=== PATIENT | female | born 1950 | race Caucasian/White ===

== ENCOUNTER → 2017-04-26 | Outpatient (CLI) | payer MEDICARE ==
--- NOTE | 2017-04-26 10:52 | WWHP ---
[facility] - HISTORY AND PHYSICAL CHIEF COMPLAINT: The patient is here for her routine gynecologic exam and mammogram. HPI: This is a 67-year-old, G3, P3-0-0-1 with an LMP of 2002. The patient is here for her routine gynecologic exam and is without gynecologic complaints. She denies any postmenopausal bleeding. It has been about 4 years since her last pelvic exam. PAST MEDICAL HISTORY: Depression and osteopenia. MEDICATIONS: 1. Zoloft 50 mg every other day and 25 mg every other day. 2. Multivitamin 1 daily. 3. Aspirin 81 mg daily. 4. Fish oil supplement 1200 mg b.i.d. 5. Red yeast rice supplement 1200 mg b.i.d. 6. Calcium with vitamin D 500 mg b.i.d. 7. Ibuprofen p.r.n. ALLERGIES: No known drug allergies. PAST SURGICAL HISTORY: Breast biopsy and tubal ligation in the past, colonoscopy in 2014 and this was her second one. PAST OB HISTORY: Three vaginal deliveries. 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 She states she does not usually need any medication for this. She has no other history of STDs. SOCIAL HISTORY: She denies tobacco, alcohol, and drug use. She is a since 2016 and is not seeing anybody at this time. FAMILY HISTORY: Both parents had lung cancer. Maternal grandmother had colon cancer. REVIEW OF SYSTEMS: Weight has been stable. She denies respiratory, cardiac or GI problems. She denies maltreatment or falling. : She has slight stress urinary incontinence with sneezing and coughing. PHYSICAL EXAM: Blood pressure 151/70, height 4 feet 11 inches, weight 151 pounds, temperature 97.1, pulse 70. This is a well-developed, well-nourished, white female, who is alert and oriented x3, in no acute distress. HEENT is within normal limits. Neck is supple without mass or thyromegaly Chest and lungs clear to auscultation. HEART: Regular rate and rhythm. Breasts are without mass or discharge. Axillary exam is negative for adenopathy. Back negative for CVA tenderness. ABDOMEN: Soft, nontender, without palpable masses. PELVIC EXAM: External genitalia reveals moderate atrophy without lesions. Vagina reveals moderate atrophy without lesions. The cervix appears somewhat stenotic secondary to atrophy. There is no evidence of prolapse. The uterus is mid position, nongravid size and nontender. There are no palpable adnexal masses or tenderness. Rectovaginal exam is negative for mass or tenderness and is negative for occult blood. EXTREMITIES: Nontender. IMPRESSION: 1. 67-year-old menopausal female with normal gynecologic exam. 2. History of osteopenia. 3. Elevated blood pressure. PLAN: 1. Pap smear was performed. 2. Self breast examination was discussed. 3. Mammogram will be done today. 4. Osteoporosis prevention was discussed. 5. We have discussed her elevated blood pressure. I have recommended that she take her blood pressure on a regular basis at home since she does have a cuff for this. She will follow up with her primary care clinic for blood pressure problems. 6. She did receive a flu shot this past fall. 7. She will return in 1 year. MMODL / IJN: [id number] /
--- NOTE | 2017-04-27 08:55 | MM ---
Reason for exam: screening (asymptomatic). Last mammogram was performed 1 year and 1 month ago. History: Patient is postmenopausal. Benign excisional biopsy of the left breast, August 26, 1998. Physical Findings: A clinical breast exam by your physician is recommended on an annual basis and results should be correlated with mammographic findings. MG 3D Screening Mammo W/Cad Bilateral CC and MLO view(s) were taken. Prior study comparison: March 23, 2016, bilateral MG 3d screening mammo w/cad. January 23, 2015, bilateral MG screening mammo w CAD. February 27, 2013, bilateral digital screening mammo w/CAD. The breast tissue is heterogeneously dense. This may lower the sensitivity of mammography. Finding: There are occasional typically benign round calcifications in both breasts. There is no discrete abnormality. ASSESSMENT: Benign, BI-RAD 2 RECOMMENDATION: Routine screening mammogram of both breasts in 1 year.
== END | disposition home or self-care (01) ==
LOC: WWCWWP 07:52
PROVIDERS: ATTEND Obstetrics & Gynecology
DX: Z12.31 Encounter for screening mammogram for malignant neoplasm of breast (principal)
CPT/HCPCS: 77063; 77067

== ENCOUNTER → 2018-07-19 | Outpatient (CLI) | payer MEDICARE ==
--- NOTE | 2018-07-19 11:00 | US ---
EXAMINATION TYPE: US thyroid st tissue head/neck DATE OF EXAM: 07/19/2018 COMPARISON: NONE CLINICAL HISTORY: 68-year-old female [id number] ENLARGED LYMPH NODES. Palpable lump left neck TECHNIQUE: Multiple sonographic images of the thyroid gland are obtained. FINDINGS: GLAND SIZE: Right Lobe: 4.0 x 1.3 x 1.3 cm Overall Parenchyma: homogenous Left Lobe: 2.9 x 1.5 x 1.1 cm Overall Parenchyma: homogeneous Isthmus Thickness: 0.5 cm NODULES RIGHT: # of nodules measured on right: 0 LEFT: # of nodules measured on left: 0 ISTHMUS: # of nodules measured in the isthmus: 0 FLOUR INSPECTOR NOTES: At the area of the patient's palpable lump in the left neck, there is a probable l ymph node visualized measuring 0.9 x 0.7 x 0.9 cm. While this is not abnormally enlarged by size crit eria, it is prominently rounded and hypoechoic. IMPRESSION: 1. Possible reactive or postinflammatory 9 mm lymph node at the patient's left neck palpable site. Th is can be monitored clinically. If any suspicious clinical features or enlargement is noted, contrast -enhanced CT soft tissue neck performed. 2. Otherwise, the thyroid gland appears unremarkable.
== END ==
LOC: RADUSWWP 09:20
PROVIDERS: ATTEND Family Medicine
DX: R59.9 Enlarged lymph nodes, unspecified (principal)
CPT/HCPCS: 76536

== ENCOUNTER → 2020-04-29 | Outpatient (CLI) | payer MEDICARE ==
--- NOTE | 2020-04-29 17:03 | BD ---
EXAMINATION TYPE: Axial Bone Density DATE OF EXAM: 04/29/2020 COMPARISON: 01.23.2015 CLINICAL HISTORY: 70 YR OLD FEMALE....ICD-10 CODE: M85.89 Height: 58.8 Weight: 144 FRAX RISK QUESTIONS: NOTHING TO NOTE HERE RISK FACTORS HISTORY OF: Postmenopausal woman: YES AT AGE 52 YRS OLD Lost more than 2 inches in height since high school: YES Hyperparathyroidism: NO Adrenal Insufficiency: NO MEDICATIONS: Additional Medications: VIT D AND CALCIUM Additional History: NO ADDITIONAL INFORMATION TO ADD HERE EXAM MEASUREMENTS: Bone mineral densitometry was performed using the [employer] System. Bone mineral density as measured about the Lumbar spine is: ----- L1-L4(G/cm2): 1.156 T Score Values are as follows: ----- L1: -1.7 ----- L2: -0.3 ----- L3: 1.6 ----- L4: -0.7 ----- L1-L4: -0.2 Bone mineral density has: Decreased -0.8% since study of: 01.23.2015 Bone mineral density about the R hip (g/cm2): 0.929 Bone mineral density about the L hip (g/cm2): 0.924 T Score values are as follows: -----R Neck: -1.2 -----L Neck: -1.0 -----R Total: -0.6 -----L Total: -0.7 Bone mineral density has: Decreased -3.8% since study of: 01.23.2015 FRAX%s: THERE IS A 9.2% CHANCE FOR A MAJOR OSTEOPOROTIC FX AND A 1.1% FOR HIP....PROBABILITY FOR FX IN 10 YRS TIME IMPRESSION: Osteopenia (T Score between -2.5 and -1). There is slightly increased risk of fracture and the patient may be considered for treatment. Re-Screen 2-5 years. NOTE: T-SCORE=SD OF THE YOUNG ADULT MEAN.
--- NOTE | 2020-05-01 10:03 | MM ---
Reason for exam: screening (asymptomatic). Last mammogram was performed 3 years ago. History: Patient is postmenopausal. Benign excisional biopsy of the left breast, August 26, 1998. Physical Findings: A clinical breast exam by your physician is recommended on an annual basis and results should be correlated with mammographic findings. MG 3D Screening Mammo W/Cad Bilateral CC and MLO view(s) were taken. Prior study comparison: April 26, 2017, bilateral MG 3d screening mammo w/cad. April 05, 2016, right breast MG 3d work up w/cad RT. The breast tissue is heterogeneously dense. This may lower the sensitivity of mammography. Finding: There are coarse heterogeneous, grouped/clustered calcifications in the upper outer quadrant, middle position of the right breast 9cm from the nipple. New finding since April 26, 2017 and April 05, 2016. ASSESSMENT: Incomplete: need additional imaging evaluation, BI-RAD 0 RECOMMENDATION: Special view mammogram of the right breast. [facility] will attempt to contact patient to return for supplemental views.
== END | disposition home or self-care (01) ==
LOC: RADMAMWWP 08:21
PROVIDERS: ATTEND Family Medicine
DX: Z12.31 Encounter for screening mammogram for malignant neoplasm of breast (principal); M85.88 Other specified disorders of bone density and structure, other site
CPT/HCPCS: 77063; 77067; 77080

== ENCOUNTER → 2020-05-12 | Outpatient (CLI) | payer MEDICARE ==
--- NOTE | 2020-05-13 09:16 | MM ---
Reason for exam: additional evaluation requested from abnormal screening. Last mammogram was performed less than 1 month ago. History: Patient is postmenopausal. Benign excisional biopsy of the left breast, August 26, 1998. Physical Findings: Nurse did not find any significant physical abnormalities on exam. MG 3D Work Up W/Cad RT CC with magnification, LM with magnification, and LM view(s) were taken of the right breast. Prior study comparison: April 29, 2020, bilateral MG 3d screening mammo w/cad. April 26, 2017, bilateral MG 3d screening mammo w/cad. There are scattered fibroglandular densities. Heterogeneous grouped lower outer quadrant calcifications have increased, biopsy recommended. These results were verbally communicated with the patient and result sheet given to the patient on 05/12/20. ASSESSMENT: Suspicious, BI-RAD 4 RECOMMENDATION: Stereotactic core biopsy of the right breast. Called Dr. Rogers's office with mammographic findings and has scheduled an appointment for the patient for 06/11/20 at 4:[address] Ramos. Biopsy scheduled for 05/26/20 at 10:00. PRELIMINARY REPORT CALLED AND FAXED TO DR. RAMOS ON 05/13/20.
== END | disposition home or self-care (01) ==
LOC: RADMAMWWP 14:21
PROVIDERS: ATTEND Family Medicine
DX: R92.8 Other abnormal and inconclusive findings on diagnostic imaging of breast (principal)
CPT/HCPCS: 77065; G0279; 77061

== ENCOUNTER → 2020-05-26 | Day surgery (SDC) | payer MEDICARE ==
[2020-05-26 09:17] VITALS: RESP 16; TEMP 98.3
[2020-05-26 10:53] VITALS: BP 147/72; PULSE 74
--- NOTE | 2020-05-28 09:19 | MM ---
Stereotactic Mammotome core biopsy right breast. HISTORY: Right breast calcifications The calcifications in question within the right breast were targeted by the undersigned. Procedure was performed by the undersigned. Informed consent was obtained and all of the patients questions were answered. The standard sterile technique was utilized and appropriate local anesthesia was obtained with 1% lidocaine. Mammotome probe was advanced and multiple core samples were obtained and sent to pathology for interpretation. Microclip marker was deployed at the site of biopsy. Post procedural mammogram demonstrates appropriate deployment of radiopaque clip marker. The patient tolerated the procedure well and left the department in stable condition. Pathology results are pending. IMPRESSION: Successful stereotactic core biopsy right breast with pathology results pending. 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 Negative for in situ or invasive malignancy. Recommendation Follow up mammogram of the right breast in 6 months. SANDRO
== END ==
LOC: RADMAMWWP 08:53
PROVIDERS: ATTEND Surgery
DX: R92.0 Mammographic microcalcification found on diagnostic imaging of breast (principal); R92.8 Other abnormal and inconclusive findings on diagnostic imaging of breast; N60.22 Fibroadenosis of left breast; N60.31 Fibrosclerosis of right breast; N60.81 Other benign mammary dysplasias of right breast; N60.21 Fibroadenosis of right breast
CPT/HCPCS: 88305; 88342; 88341; 19081; A4648; J2001

== ENCOUNTER → 2020-12-16 | Outpatient (CLI) | payer MEDICARE ==
--- NOTE | 2020-12-16 11:40 | MM ---
Reason for exam: follow-up at short interval from prior study. Last mammogram was performed 7 months ago. History: Patient is postmenopausal. Benign MG stereo VAD BX RT of the right breast, May 26, 2020. Benign excisional biopsy of the left breast, August 26, 1998. Physical Findings: Nurse did not find any significant physical abnormalities on exam. MG 3D Diag Mammo W/Cad RT CC and MLO view(s) were taken of the right breast. Prior study comparison: May 12, 2020, right breast MG 3d work up w/cad RT. April 29, 2020, bilateral MG 3d screening mammo w/cad. There are scattered fibroglandular densities. Benign appearing calcifications in the right breast. Previous mammotome biopsy in the right breast. These results were verbally communicated with the patient and result sheet given to the patient on 12/16/20. ASSESSMENT: Benign, BI-RAD 2 RECOMMENDATION: Return to routine screening mammogram schedule for both breasts. Back on schedule for April 2021.
== END | disposition home or self-care (01) ==
LOC: RADMAMWWP 10:55
PROVIDERS: ATTEND Surgery
DX: R92.8 Other abnormal and inconclusive findings on diagnostic imaging of breast (principal)
CPT/HCPCS: 77065; G0279; 77061

== ENCOUNTER → 2021-05-06 | Outpatient (CLI) | payer MEDICARE ==
--- NOTE | 2021-05-07 15:04 | MM ---
Reason for exam: screening (asymptomatic). Last mammogram was performed 5 months ago. History: Patient is postmenopausal. Benign MG stereo VAD BX RT of the right breast, May 26, 2020. Benign excisional biopsy of the left breast, August 26, 1998. Physical Findings: A clinical breast exam by your physician is recommended on an annual basis and results should be correlated with mammographic findings. MG 3D Screening Mammo W/Cad Bilateral CC and MLO view(s) were taken. Prior study comparison: December 16, 2020, right breast MG 3d diag mammo w/cad RT. May 12, 2020, right breast MG 3d work up w/cad RT. There are scattered fibroglandular densities. There are benign appearing round dystrophic calcifications bilaterally. Previous mammotome biopsy in the right breast. Asymmetric breast tissue in the right breast, stable. There is no discrete abnormality. ASSESSMENT: Benign, BI-RAD 2 RECOMMENDATION: Routine screening mammogram of both breasts in 1 year.
== END | disposition home or self-care (01) ==
LOC: RADMAMWWP 08:11
PROVIDERS: ATTEND Family Medicine
DX: Z12.31 Encounter for screening mammogram for malignant neoplasm of breast (principal); Z78.0 Asymptomatic menopausal state
CPT/HCPCS: 77063; 77067

== ENCOUNTER → 2023-05-10 | Outpatient (CLI) | payer MEDICARE ==
--- NOTE | 2023-05-11 19:49 | MM ---
Reason for Exam: Screening (asymptomatic). Last mammogram was performed 2 year(s) and 0 month(s) ago. Patient History: Menarche at age 10. First Full-Term at age 17. Postmenopausal. 05/26/2020, Benign Core Biopsy on the right side. 08/26/1998, Benign Excisional Biopsy on the left side. Risk Values: Vesna 5 year model risk: 2.1%. NCI Lifetime model risk: 4.8%. Prior Study Comparison: 05/12/2020 Right Diagnostic Mammogram, [facility]. 12/16/2020 Right Diagnostic Mammogram, [facility]. 05/06/2021 Bilateral Screening Mammogram, [facility]. Tissue Density: There are scattered fibroglandular densities. Findings: Analyzed By CAD. Unchanged global asymmetry upper outer quadrant right breast. Microclip right breast from prior biopsy. Unchanged fat necrosis calcifications posteriorly on the left. There is no suspicious group of microcalcifications or new suspicious mass in either breast. Overall Assessment: Benign, BI-RAD 2 Management: Screening Mammogram of both breasts in 1 year. . Patient should continue monthly self-breast exams. A clinical breast exam by your physician is recommended on an annual basis. This exam should not preclude additional follow-up of suspicious palpable abnormalities. Note on Vesna scores and lifetime risk: 1. A Vesna score greater than 3% is considered moderate risk. If this is the case, consider specialist referral to assess eligibility for a risk reducing agent. 2. If overall lifetime risk for the development of breast cancer is 20% or higher, the patient may qualify for future screening with alternating mammogram and breast MRI. Electronically signed and approved by: Odilia Goode M.D. Radiologist
== END | disposition home or self-care (01) ==
LOC: RADMAMWWP 09:13
PROVIDERS: ATTEND Family Medicine
DX: Z12.31 Encounter for screening mammogram for malignant neoplasm of breast (principal); Z78.0 Asymptomatic menopausal state
CPT/HCPCS: 77063; 77067

== ENCOUNTER 2023-08-14 15:52 | Inpatient (IN) | payer MEDICARE ==
--- NOTE | 2023-08-14 16:49 | ED ---
Abdominal Pain HPI - General Chief Complaint: Abdominal Pain Stated Complaint: Abd pain Time Seen by Provider: 08/14/23 16:27 Source: patient, family Mode of arrival: ambulatory - History of Present Illness Initial Comments: Otherwise healthy 73-year-old female presenting to the ED with a chief complaint of abdominal pain. 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 Patient reports pain is a constant pressure in nature intermittently becomes worse. No provoking factors. No alleviating or aggravating factors. Patient reports the pain feels as if she needs to pass gas. For this she reports she took 2 Gas-X pills which did not relieve her pain. She also notes today when she was urinating, felt as if she had to strain a little more than usual to successfully urinate however denies pain with urination, frequency, urgency, blood in the urine. No changes in bowel habits. Denies nausea or vomiting. Denies fever or chills. No chest pains or shortness of breath. No other complaints at this time. Has a surgical history significant for remote tubal ligation. - Related Data Home Medications Medication Instructions Recorded Confirmed Calcium Carbonate [Calcium] 1 tab PO DAILY 05/14/20 05/26/20 Cholecalciferol [Vitamin D3 (10 1 tab PO DAILY 05/14/20 05/26/20 Mcg = 400 Iu)] Multivitamins, Thera [Multivitamin 1 tab PO DAILY 05/14/20 05/26/20 (formulary)] [place]-3 Fatty Acids/Fish Oil [Fish 1 each PO DAILY 05/14/20 05/26/20 Oil 1,000 mg Softgel] Red Yeast Rice 1 tab PO DAILY 05/14/20 05/26/20 Elderberry Fruit and Flower [Black 1 each PO DAILY 05/26/20 05/26/20 Elderberry 575 mg Cap] Allergies Allergy/AdvReac Type Severity Reaction Status Date / Time No Known Allergies Allergy Verified 08/14/23 16:20 Review of Systems ROS Statement: Those systems with pertinent positive or pertinent negative responses have been documented in the HPI. ROS Other: All systems not noted in ROS Statement are negative. Past Medical History Past Medical History: No Reported History History of Any Multi-Drug Resistant Organisms: None Reported Past Surgical History: Breast Surgery Additional Past Surgical History / Comment(s): Benign excisional biopsy left breast 1998 Past Anesthesia/Blood Transfusion Reactions: No Reported Reaction, Motion Sickness Past Psychological History: No Psychological Hx Reported Smoking Status: Never smoker Past Alcohol Use History: None Reported Past Drug Use History: None Reported General Exam General appearance: alert, in no apparent distress Eye exam: Present: normal appearance Neck exam: Present: normal inspection Respiratory exam: Present: normal lung sounds bilaterally Cardiovascular Exam: Present: regular rate GI/Abdominal exam: Present: soft (No significant tenderness to palpation. No rebound guarding or rigidity. Bowel sounds active. No CVA tenderness percussion bilaterally.) Neurological exam: Present: alert, oriented X3 Skin exam: Present: warm, dry Course Vital Signs 08/14/23 08/14/23 16:15 17:33 Temperature 97.6 F Pulse Rate 72 71 Respiratory 18 18 Rate Blood Pressure 174/80 189/89 O2 Sat by Pulse 100 95 Oximetry Medical Decision Making - Medical Decision Making Was pt. sent in by a medical professional or institution (, PA, GRAIN SHOVELER, urgent care, hospital, or fpc...) When possible be specific @ -No Did you speak to anyone other than the patient for history (EMS, parent, family, police, friend...)? What history was obtained from this source @ -No Did you review nursing and triage notes (agree or disagree)? Why? @ -I reviewed and agree with nursing and triage notes Were old charts reviewed (outside hosp., previous admission, EMS record, old EKG, old radiological studies, urgent care reports/EKG's, fpc records)? Report findings @ -No old charts were reviewed Differential Diagnosis (chest pain, altered mental status, abdominal pain women, abdominal pain men, vaginal bleeding, weakness, fever, dyspnea, syncope, headache, dizziness, GI bleed, back pain, seizure, CVA, palpatations, mental health, musculoskeletal)? @ -Differential Abdominal Pain Women: Appendicitis, Cholecystitis, diverticulosis, ischemic bowel, pancreatitis, hepatitis, UTI, gastroenteritis, AAA, incarcerated hernia, bowel obstruction, constipation, inflammatory bowel, hepatitis, peptic ulcer disease, splenic infarction, perforated viscus, vulvitis, ovarian torsion, PID, kidney stone, placenta abruption, this is not meant to be an all-inclusive list EKG interpreted by me (3pts min.). @ -None X-rays interpreted by me (1pt min.). @ -None done CT interpreted by me (1pt min.). @ -CT interpreted me which reveals acute uncomplicated appendicitis. U/S interpreted by me (1pt. min.). @ -None done What testing was considered but not performed or refused? (CT, X-rays, U/S, labs)? Why? @ -None What meds were considered but not given or refused? Why? @ -Patient was offered analgesics however at this time declined Did you discuss the management of the patient with other professionals (professionals i.e. , PA, GRAIN SHOVELER, lab, RT, psych nurse, foster care social worker, industrial gas fitter helper, teacher, ship's officer, high risk case manager)? Give summary @ -My attending physician, Dr. Huynh, will discuss the case with Dr. Moon Was smoking cessation discussed for >3mins.? @ -No Was critical care preformed (if so, how long)? @ -No Were there social determinants of health that impacted care today? How? (Homelessness, low income, unemployed, alcoholism, drug addiction, transportation, low edu. Level, literacy, decrease access to med. care, fci, rehab)? @ -No Was there de-escalation of care discussed even if they declined (Discuss DNR or withdrawal of care, Hospice)? DNR status @ -No What co-morbidities impacted this encounter? (DM, HTN, Smoking, COPD, CAD, Cancer, CVA, ARF, Chemo, Hep., AIDS, mental health diagnosis, sleep apnea, morbid obesity)? @ -None Was patient admitted / discharged? Hospital course, mention meds given and route, prescriptions, significant lab abnormalities, going to OR and other pertinent info. @ -Admission Otherwise healthy 73-year-old female presenting to the ED complaints of lower abdominal pressure and difficulties urinating today. Laboratory studies reviewed. CBC does show an elevated white blood cell count at 13.5. Neutrophils elevated at 9.2. Chemistry panel largely unremarkable. Urine does show some evidence of infection with small leukocyte Estrace, 8 white blood cells, occasional bacteria, no contamination. Serology panel unremarkable. CT reveals evidence of uncomplicated acute appendicitis with a dilated tubular structure in the right lower quadrant appearing to represent an inflamed appendix measuring up to 12 mm in diameter with surrounding fat stranding there is no extraluminal gas or focal fluid collection. Patient started on IV antibiotics. Blood cultures obtained. At this time, patient is hemodynamically stable afebrile. Undiagnosed new problem with uncertain prognosis? @ -No Drug Therapy requiring intensive monitoring for toxicity (Heparin, Nitro, Insulin, Cardizem)? @ -No Were any procedures done? @ -No Diagnosis/symptom? @ -Acute appendicitis, urinary tract infection Acute, or Chronic, or Acute on Chronic? @ -Acute Uncomplicated (without systemic symptoms) or Complicated (systemic symptoms)? @ -Complicated Side effects of treatment? @ -No Exacerbation, Progression, or Severe Exacerbation? @ -No Poses a threat to life or bodily function? How? (Chest pain, [place], [place], pneumonia, PE, COPD, DKA, ARF, appy, cholecystitis, CVA, Diverticulitis, Homicidal, Gomez icidal, threat to staff... and all critical care pts) @ -Possibly however at this time unlikely - Lab Data Result diagrams: 08/14/23 16:44 08/14/23 16:44 Lab Results 08/14/23 08/14/23 08/14/23 Range/Units 16:40 16:44 16:44 WBC 13.5 H (3.8-10.6) k/uL RBC 4.23 (3.80-5.40) m/uL Hgb 14.0 (11.4-16.0) gm/dL Hct 42.9 (34.0-46.0) % MCV 101.6 H (80.0-100.0) fL MCH 33.1 (25.0-35.0) pg MCHC 32.6 (31.0-37.0) g/dL RDW 12.6 (11.5-15.5) % Plt Count 347 (150-450) k/uL MPV 9.7 Neutrophils % 68 % Lymphocytes % 25 % Monocytes % 5 % Eosinophils % 1 % Basophils % 0 % Neutrophils # 9.2 H (1.3-7.7) k/uL Lymphocytes # 3.4 (1.0-4.8) k/uL Monocytes # 0.6 (0-1.0) k/uL Eosinophils # 0.2 (0-0.7) k/uL Basophils # 0.1 (0-0.2) k/uL Sodium 137 (137-145) mmol/L Potassium 4.5 (3.5-5.1) mmol/L Chloride 101 (98-107) mmol/L Carbon Dioxide 31 H (22-30) mmol/L Anion Gap 5 mmol/L BUN 24 H (7-17) mg/dL Creatinine 0.70 (0.52-1.04) mg/dL Est GFR (CKD-EPI)AfAm >90 (>60 ml/min/1.73 sqM) Est GFR (CKD-EPI)NonAf 86 (>60 ml/min/1.73 sqM) Glucose 100 H (74-99) mg/dL Calcium 9.7 (8.4-10.2) mg/dL Total Bilirubin 0.4 (0.2-1.3) mg/dL AST 26 (14-36) U/L ALT 22 (4-34) U/L Alkaline Phosphatase 61 (38-126) U/L Total Protein 7.0 (6.3-8.2) g/dL Albumin 3.9 (3.5-5.0) g/dL Amylase 101 (30-110) U/L Lipase 174 (23-300) U/L Urine Color Colorless Urine Appearance Clear (Clear) Urine pH 6.5 (5.0-8.0) Ur Specific [place] 1.017 (1.001-1.035) Urine Protein Negative (Negative) Urine Glucose (UA) Negative (Negative) Urine Ketones Negative (Negative) Urine Blood Negative (Negative) Urine Nitrite Negative (Negative) Urine Bilirubin Negative (Negative) Urine Urobilinogen <2.0 (<2.0) mg/dL Ur Leukocyte Esterase Small H (Negative) Urine RBC <1 (0-5) /hpf Urine WBC 8 H (0-5) /hpf Urine Bacteria Occasional H (None) /hpf Urine Mucus Rare H (None) /hpf Influenza Type A (PCR) (Not Detectd) Influenza Type B (PCR) (Not Detectd) RSV (PCR) (Not Detectd) SARS-CoV-2 (PCR) (Not Detectd) 08/14/23 Range/Units 16:48 WBC (3.8-10.6) k/uL RBC (3.80-5.40) m/uL Hgb (11.4-16.0) gm/dL Hct (34.0-46.0) % MCV (80.0-100.0) fL MCH (25.0-35.0) pg MCHC (31.0-37.0) g/dL RDW (11.5-15.5) % Plt Count (150-450) k/uL MPV Neutrophils % % Lymphocytes % % Monocytes % % Eosinophils % % Basophils % % Neutrophils # (1.3-7.7) k/uL Lymphocytes # (1.0-4.8) k/uL Monocytes # (0-1.0) k/uL Eosinophils # (0-0.7) k/uL Basophils # (0-0.2) k/uL Sodium (137-145) mmol/L Potassium (3.5-5.1) mmol/L Chloride (98-107) mmol/L Carbon Dioxide (22-30) mmol/L Anion Gap mmol/L BUN (7-17) mg/dL Creatinine (0.52-1.04) mg/dL Est GFR (CKD-EPI)AfAm (>60 ml/min/1.73 sqM) Est GFR (CKD-EPI)NonAf (>60 ml/min/1.73 sqM) Glucose (74-99) mg/dL Calcium (8.4-10.2) mg/dL Total Bilirubin (0.2-1.3) mg/dL AST (14-36) U/L ALT (4-34) U/L Alkaline Phosphatase (38-126) U/L Total Protein (6.3-8.2) g/dL Albumin (3.5-5.0) g/dL Amylase (30-110) U/L Lipase (23-300) U/L Urine Color Urine Appearance (Clear) Urine pH (5.0-8.0) Ur Specific [place] (1.001-1.035) Urine Protein (Negative) Urine Glucose (UA) (Negative) Urine Ketones (Negative) Urine Blood (Negative) Urine Nitrite (Negative) Urine Bilirubin (Negative) Urine Urobilinogen (<2.0) mg/dL Ur Leukocyte Esterase (Negative) Urine RBC (0-5) /hpf Urine WBC (0-5) /hpf Urine Bacteria (None) /hpf Urine Mucus (None) /hpf Influenza Type A (PCR) Not Detected (Not Detectd) Influenza Type B (PCR) Not Detected (Not Detectd) RSV (PCR) Not Detected (Not Detectd) SARS-CoV-2 (PCR) Not Detected (Not Detectd) Disposition Clinical Impression: Acute appendicitis, Urinary tract infection Disposition: ADMITTED IP TO THIS HOSP Condition: Good Referrals: Shimon Rogers DO [Primary Care Provider] - 1-2 days Time of Disposition: 20:32
[2023-08-14 16:59] LABS: Basophils # (A) 0.1 k/uL (0-0.2); Basophils % (A) 0 %; Eosinophils # (A) 0.2 k/uL (0-0.7); Eosinophils % (A) 1 %; HCT 42.9 % (34.0-46.0); Lymphocytes # (A) 3.4 k/uL (1.0-4.8); Lymphocytes % (A) 25 %; MCH 33.1 pg (25.0-35.0); MCHC 32.6 g/dL (31.0-37.0); MCV 101.6 fL (80.0-100.0); Mean Platelet Volume 9.7; Monocytes # (A) 0.6 k/uL (0-1.0); Monocytes % (A) 5 %; Neutrophils # (A) 9.2 k/uL (1.3-7.7); Neutrophils % (A) 68 %; Platelet Count 347 k/uL (150-450); RBC 4.23 m/uL (3.80-5.40); RDW 12.6 % (11.5-15.5); WBC 13.5 k/uL (3.8-10.6)
[2023-08-14] MEDS: SODIUM CHLORIDE 0.9% 1,000 ML IV STA (17:00)
[2023-08-14 17:08] LABS: Appearance,Urine Clear (Clear); Bacteria,Urine Occasional /hpf; Bilirubin,Urine Negative (Negative); Blood,Urine Negative (Negative); Color,Urine Colorless; Glucose,Urine (UA) Negative (Negative); Ketones,Urine Negative (Negative); Leukocyte Esterase,Urine Small (Negative); Mucus,Urine Rare /hpf; Nitrite,Urine Negative (Negative); PH, Urine 6.5 (5.0-8.0); Protein,Urine Negative (Negative); RBC,Urine <1 /hpf (0-5); Specific Gravity,Urine 1.017 (1.001-1.035); Urobilinogen,Urine <2.0 mg/dL (<2.0); WBC,Urine 8 /hpf (0-5)
[2023-08-14 17:12] LABS: ALT 22 U/L (4-34); AST 26 U/L (14-36); African American GFR (CKD) >90 (>60 ml/min/1.73 sqM); Albumin 3.9 g/dL (3.5-5.0); Alkaline Phosphatase 61 U/L (38-126); Amylase 101 U/L (30-110); Anion Gap 5 mmol/L; Blood Urea Nitrogen 24 mg/dL (7-17); Calcium 9.7 mg/dL (8.4-10.2); Carbon Dioxide 31 mmol/L (22-30); Chloride 101 mmol/L (98-107); Glucose 100 mg/dL (74-99); Lipase 174 U/L (23-300); Non-African American GFR(CKD) 86 (>60 ml/min/1.73 sqM); Potassium 4.5 mmol/L (3.5-5.1); Sodium 137 mmol/L (137-145); Total Bilirubin 0.4 mg/dL (0.2-1.3)
--- NOTE | 2023-08-14 19:58 | CT ---
EXAMINATION TYPE: CT abdomen pelvis wo con CT DLP: 478.4 mGycm, Automated exposure control for dose reduction was used. DATE OF EXAM: 08/14/2023 5:09 PM COMPARISON: None. CLINICAL INDICATION:Female, 73 years old with history of suprapubic pain difficulty urinating r/o sto ne; suprapubic pain & difficulty urinating onset 2 pm today. r/o stone TECHNIQUE: Axial CT of the abdomen and pelvis. Sagittal and coronal reformats were created on a [employer] workstation. Contrast used: mL of , (none if empty) Oral contrast used: without Oral Contrast (none if empty) FINDINGS: LOWER CHEST: Lung bases are clear. Heart is mildly enlarged with moderate coronary arterial calcifica tions. Partial calcification aortic and mitral valves. No pericardial effusion. ABDOMEN LIVER: Unremarkable GALLBLADDER AND BILE DUCTS: Unremarkable gallbladder. No biliary ductal dilatation. PANCREAS: Unremarkable. SPLEEN: Unremarkable. ADRENAL GLANDS: Mildly thickened, may be seen with hyperplasia.. KIDNEYS AND URETERS: No evidence of renal calculi or contour deformity. Mildly prominent bilateral ex trarenal pelves. No hydroureteronephrosis. PELVIS BLADDER: Incompletely distended but grossly unremarkable. REPRODUCTIVE: Unremarkable. ABDOMEN & PELVIS STOMACH AND BOWEL: Stomach and small bowel are nondistended, no evidence of obstruction. Dilated tu bular structure in the right lower quadrant appears to represent an inflamed appendix, measuring up t o 12 mm diameter and there is surrounding fat stranding. No extraluminal gas or focal fluid collectio n. Mild stool throughout the colon. There are multiple diverticula throughout the colon without evid ence of diverticulitis. PERITONEUM/RETROPERITONEUM: No evidence of pneumoperitoneum or free fluid. VASCULATURE: Moderate atherosclerotic calcifications are present throughout the abdominal aorta and i ts branches. No evidence of aortic aneurysm. Iliofemoral arteries are tortuous. LYMPH NODES: No enlarged nodes by CT size criteria. SOFT TISSUE/ABDOMINAL WALL: Tiny fat-containing umbilical hernia. MUSCULOSKELETAL: No acute osseous abnormalities. Mild/moderate disc degeneration changes are present throughout the thoracolumbar spine. Mild pectus excavatum deformity. IMPRESSION: Acute uncomplicated appendicitis.
[2023-08-14] MEDS ORDERED: HYDROmorphone 0.5 MG/0.5 ML SYRINGE IVP PRN (20:44)
[2023-08-14] MEDS ORDERED: ACETAMINOPHEN TAB 325 MG TAB PO PRN (20:44)
[2023-08-14] MEDS ORDERED: ONDANSETRON 4 MG/2 ML VIAL IVP PRN (20:44)
[2023-08-14] MEDS ORDERED: HYDROmorphone 1 MG/ML 1 ML SYRINGE IVP PRN (20:44)
[2023-08-14] MEDS ORDERED: NALOXONE 0.4 MG/ML 1 ML VIAL IV PRN (20:44)
[2023-08-14] MEDS: SODIUM CHLORIDE 0.9% 1,000 ML IV SCH (20:55)
[2023-08-14] MEDS: hydrALAZINE HCL 20 MG/ML 1 ML VIAL IVP STA (21:04)
[2023-08-15 02:11] VITALS: RESP 16
--- NOTE | 2023-08-15 08:07 | P.PN ---
Progress Note - Text Progress Note Date: 08/15/23 The patient had been scheduled for laparoscopic appendectomy. The patient was evaluated. She states that her pain resolved spontaneously around 6 PM last night. Approximate 2 hours after she was in the emergency. Patient has no pain currently. She feels well. She denies any significant GI complaints. The patient may have had gastroenteritis. Patient will start on regular diet. We will cancel laparoscopic appendectomy.
[2023-08-15] MEDS: PIPERACILLIN-TAZOBACTAM 3.375 GM in SODIUM CHLORIDE 0.9% 100 ML IVPB SCH (08:32)
--- NOTE | 2023-08-15 10:27 | P.CONS ---
History of Present Illness - Reason for Consult Consult date: 08/15/23 - Chief Complaint Medical consult - History of Present Illness 73-year-old woman with medical history of depression, osteopenia presented for evaluation of abdominal pain. Patient says that yesterday she started to experience some lower quadrant abdominal pain with bloating. Initially, she thought this was gas and tried to take Gas-X a few times, however, her pain did not improve. She reports that she started to have chills associated with her pain. In retrospect, she notes that she has been having on and off chills for the last week or so. She also has felt more tired than usual and has had a loss of appetite in the last 24 hours. She denies any diarrhea. She feels her urine output is dropped today, but has not been drinking much water in the last 24 hours. She denies dysuria. She denies fevers. She denies chest pain, palpitations, syncope, numbness/weakness of extremities. In the emergency room, patient was afebrile, 164/78, heart rate 70, 97% on room air. CBC demonstrated leukocytosis to 13.5, mild elevation of MCV to 101.6. Basic metabolic panel showed CO2 of 31, BUN 24, otherwise unremarkable. Liver function tests are unremarkable. Amylase was 101, lipase was 174. Lactic acid was 0.9. UA showed small leukocyte esterase, 8 white blood cells, occasional bacteria. Influenza A, B, RSV, COVID were negative. Abdominal CT demonstrated evidence of mild uncomplicated appendicitis. Patient was admitted to the surgical service with medicine consultation. All Systems reviewed and pertinent positives and negatives noted in HPI, all other symptoms are negative Gen: in no apparent distress, resting comfortably in bed Eyes: PERRL, no scleral injection or icterus HENT: normocephalic, atraumatic, good hearing acuity, moist mucous membranes Neck: no tracheal deviation, full range of motion Resp: good air exchange, breathing comfortably with no accessory muscle use, no tactile fremitus, clear to auscultation bilaterally CVS: good distal perfusion x 4, no pitting edema, regular rate and rhythm without murmurs GI: soft, NTTP, ND, no hepatosplenomegaly : no suprapubic tenderness, no CVAT, kamara catheter not present MSK: no clubbing, no cyanosis, no noted contractures of extremities Skin: no noted rashes, petechiae; temperature of skin is appropriate Neuro: moving all extremities without signs of weakness, CN II-XII intact Psych: cooperative, euthymic mood, insight and judgment intact Labs and imaging as above Assessment/plan: Acute uncomplicated appendicitis -Primary team is following -Antibiotics can be transitioned to p.o. and patient is medically cleared for discharge -Pain control per primary team Depression Osteopenia -Home medications reviewed, no changes need to be made on discharge. Patient is full code Past Medical History Past Medical History: No Reported History History of Any Multi-Drug Resistant Organisms: None Reported Past Surgical History: Breast Surgery Additional Past Surgical History / Comment(s): Benign excisional biopsy left breast 1998 Past Anesthesia/Blood Transfusion Reactions: No Reported Reaction, Motion Sickness Past Psychological History: No Psychological Hx Reported Smoking Status: Never smoker Past Alcohol Use History: None Reported Past Drug Use History: None Reported Medications and Allergies Home Medications Medication Instructions Recorded Confirmed Type Calcium Carbonate [Calcium] 600 mg PO DAILY 05/14/20 08/15/23 History Cholecalciferol [Vitamin D3 (10 10 mcg PO DAILY 05/14/20 08/15/23 History Mcg = 400 Iu)] Multivitamins, Thera [Multivitamin 1 tab PO DAILY 05/14/20 08/15/23 History (formulary)] [place]-3 Fatty Acids/Fish Oil [Fish 1 cap PO DAILY 05/14/20 08/15/23 History Oil 1,000 mg Softgel] Red Yeast Rice 600 mg PO DAILY 05/14/20 08/15/23 History Elderberry Fruit and Flower [Black 1 cap PO DAILY 05/26/20 08/15/23 History Elderberry 575 mg Cap] predniSONE [Deltasone] See Taper PO DAILY 08/15/23 08/15/23 History Allergies Allergy/AdvReac Type Severity Reaction Status Date / Time No Known Allergies Allergy Verified 08/15/23 09:13 Physical Exam Osteopathic Statement: *. No significant issues noted on an osteopathic structural exam other than those noted in the History and Physical/Consult. Vitals: Vital Signs Temp Pulse Pulse Pulse Resp BP BP 08/15/23 08:00 70 16 08/15/23 07:17 98.6 F 70 16 164/78 08/15/23 01:46 98.6 F 76 16 124/69 08/14/23 22:35 18 04/21/24 21:33 68 18 165/49 08/14/23 20:52 97.8 F 91 18 159/68 08/14/23 20:51 73 18 196/103 08/14/23 17:33 71 18 189/89 08/14/23 16:15 97.6 F 72 18 174/80 Pulse Ox 08/15/23 08:00 08/15/23 07:17 97 08/15/23 01:46 95 08/14/23 22:35 08/14/23 21:33 97 08/14/23 20:52 91 L 08/14/23 20:51 96 08/14/23 17:33 95 08/14/23 16:15 100 Intake and Output 08/14/23 08/15/23 08/15/23 22:59 06:59 14:59 Other: Voiding Method Toilet Toilet # Voids 3 Weight 68.039 kg Results CBC & Chem 7: 08/14/23 16:44 08/14/23 16:44 Labs: Abnormal Lab Results - Last 24 Hours (Table) 08/14/23 08/14/23 08/14/23 Range/Units 16:40 16:44 16:44 WBC 13.5 H (3.8-10.6) k/uL MCV 101.6 H (80.0-100.0) fL Neutrophils # 9.2 H (1.3-7.7) k/uL Carbon Dioxide 31 H (22-30) mmol/L BUN 24 H (7-17) mg/dL Glucose 100 H (74-99) mg/dL Ur Leukocyte Esterase Small H (Negative) Urine WBC 8 H (0-5) /hpf Urine Bacteria Occasional H (None) /hpf Urine Mucus Rare H (None) /hpf
[2023-08-15 11:15] LABS: Basophils % (A) 0 %; Eosinophils # (A) 0.1 k/uL (0-0.7); Eosinophils % (A) 1 %; HGB 14.3 gm/dL (11.4-16.0); Lymphocytes # (A) 2.8 k/uL (1.0-4.8); Lymphocytes % (A) 33 %; MCH 33.3 pg (25.0-35.0); MCHC 32.5 g/dL (31.0-37.0); MCV 102.4 fL (80.0-100.0); Macrocytosis Slight; Mean Platelet Volume 9.8; Monocytes # (A) 0.4 k/uL (0-1.0); Monocytes % (A) 5 %; Neutrophils % (A) 59 %; Platelet Count 272 k/uL (150-450); RDW 13.1 % (11.5-15.5); WBC 8.5 k/uL (3.8-10.6)
--- NOTE | 2023-08-15 13:36 | P.DS ---
Providers Date of admission: 08/14/23 20:44 Expected date of discharge: 08/15/23 Attending physician: Joe Torres Consults: 08/14/23 20:44 Consult Physician Urgent Consulting Provider: María Elena Miramontes Consult Reason/Comments: Acute appy, medical management Do you want consulting provider notified?: Yes Primary care physician: Shimon Rogers Hospital Course: Discharge diagnosis 1. Possible gastroenteritis 2. Right lower quadrant abdominal pain Hospital course This is a 73-year-old female who presented to the hospital with pain across the lower abdomen. CT scan abdomen pelvis reported acute uncomplicated appendicitis. Patient initially had been scheduled for laparoscopic appendectomy. Patient evaluated by Dr. Torres her pain had spontaneously resolved around 6 PM last night. She currently has no pain. She is tolerating diet. Per Dr. Torres patient may have had a gastroenteritis. An appendectomy was canceled for today. Patient's white count has normalized. She is up and ambulating. She is afebrile. She is tolerating diet. She is stable for discharge per Dr. Torres. Please refer to chart for any further details. Physician Box Repairer note has been reviewed by physician. Signing provider agrees with the documented findings, assessment, and plan of care. Patient Condition at Discharge: Stable Plan - Discharge Summary Discharge Rx Participant: No New Discharge Prescriptions: New Amoxic-Pot Clav 875-125Mg [Augmentin 875-125] 1 tab PO Q12HR 7 Days #14 tab Continue Multivitamins, Thera [Multivitamin (formulary)] 1 tab PO DAILY Cholecalciferol [Vitamin D3 (10 Mcg = 400 Iu)] 10 mcg PO DAILY Red Yeast Rice 600 mg PO DAILY [place]-3 Fatty Acids/Fish Oil [Fish Oil 1,000 mg Softgel] 1 cap PO DAILY Calcium Carbonate [Calcium] 600 mg PO DAILY Elderberry Fruit and Flower [Black Elderberry 575 mg Cap] 1 cap PO DAILY No Action predniSONE [Deltasone] See Taper PO DAILY Discharge Medication List Calcium Carbonate [Calcium] 600 mg PO DAILY 05/14/20 [History] Cholecalciferol [Vitamin D3 (10 Mcg = 400 Iu)] 10 mcg PO DAILY 05/14/20 [History] Multivitamins, Thera [Multivitamin (formulary)] 1 tab PO DAILY 05/14/20 [History] [place]-3 Fatty Acids/Fish Oil [Fish Oil 1,000 mg Softgel] 1 cap PO DAILY 05/14/20 [History] Red Yeast Rice 600 mg PO DAILY 05/14/20 [History] Elderberry Fruit and Flower [Black Elderberry 575 mg Cap] 1 cap PO DAILY 05/26/20 [History] Amoxic-Pot Clav 875-125Mg [Augmentin 875-125] 1 tab PO Q12HR 7 Days #14 tab 08/15/23 [Rx] predniSONE [Deltasone] See Taper PO DAILY 08/15/23 [History] Follow up Appointment(s)/Referral(s): Shimon Rogers DO [Primary Care Provider] - 1-2 days Joe Torres MD [STAFF PHYSICIAN] - 1 Week Discharge Disposition: HOME SELF-CARE
[2023-08-15 14:26] VITALS: BP 156/69; PULSE 82; TEMP 98.5
== END 2023-08-15 14:47 | disposition home or self-care (01) | DRG 392 ==
LOC: EC 15:52 → 5NMEDONC 20:44
PROVIDERS: ADMIT Surgery; ATTEND Surgery
DX: K52.9 Noninfective gastroenteritis and colitis, unspecified (principal); F32.A Depression, unspecified; M85.80 Other specified disorders of bone density and structure, unspecified site; Z53.8 Procedure and treatment not carried out for other reasons; Z11.52 Encounter for screening for COVID-19; Z79.899 Other long term (current) drug therapy
CPT/HCPCS: 36415; 74176; 80053; 81001; 82150; 83605; 83690; 85025; 87040; 87636; 96361; 96374; 99285

== ENCOUNTER 2024-02-07 06:55 | Day surgery (SDC) | payer MEDICARE ==
[2024-02-03 09:27] VITALS: BMI 29.2
[2024-02-07 07:18] VITALS: TEMP 97.2
[2024-02-07] MEDS: IV FLUID CONTINUATION 1,000 ML IV ONE (07:29)
[2024-02-07] MEDS: LACTATED RINGERS 1,000 ML IV SCH (07:30)
[2024-02-07] MEDS ORDERED: PROPOFOL 10 MG/ML 20 ML VIAL IV ONE (07:34)
--- NOTE | 2024-02-07 07:56 | P.PCN ---
Date of Procedure: 02/07/24 Procedure(s) Performed: BRIEF HISTORY: Patient is a 73-year-old pleasant white female scheduled for an elective colonoscopy as a part of screening for colon cancer. She does have family history of colon cancer diagnosed in her grandmother at age 60. PROCEDURE PERFORMED: Colonoscopy. PREOPERATIVE DIAGNOSIS: Screening for colon cancer. IV sedation per Anesthesia. PROCEDURE: After informed consent was obtained, the patient, was brought into the endoscopy unit. IV sedation was administered by Anesthesia under continuous monitoring. Digital rectal examination was normal. Initially the Olympus CF-160 flexible video colonoscope was then inserted in the rectum, gradually advanced into the cecum without any difficulty. Careful examination was performed as the scope was gradually being withdrawn. Ileocecal valve and the appendiceal orifice were visualized and appeared normal. Prep was excellent. Mucosa of the cecum, ascending colon, transverse colon, descending colon, sigmoid colon, and rectum appeared normal. Moderate sigmoid diverticulosis retroflexion was performed in the rectum and small internal were seen. The patient tolerated the procedure well. IMPRESSION: Normal-appearing colon from rectum to cecum with no evidence of colorectal neoplasia. Moderate sigmoid diverticulosis Small internal hemorrhoids RECOMMENDATIONS: Findings of this examination were discussed with the patient as well as her family. She was advised to have repeat screening colonoscopy at age 79..
[2024-02-07 09:00] VITALS: RESP 18
[2024-02-07 09:08] VITALS: PULSE 75
[2024-02-07 09:40] VITALS: BP 157/69
== END 2024-02-07 09:17 | disposition home or self-care (01) ==
LOC: ORWHC2ENDO 06:55
PROVIDERS: ATTEND Internal Medicine Gastroenterology

== ENCOUNTER → 2024-06-29 | Outpatient (CLI) | payer MEDICARE ==
--- NOTE | 2024-06-29 10:34 | MM ---
Reason for Exam: Clinical finding. Last mammogram was performed 1 year(s) and 2 month(s) ago. Patient History: Menarche at age 10. First Full-Term at age 17. Postmenopausal. 05/26/2020, Benign Core Biopsy on the right side. 08/26/1998, Benign Excisional Biopsy on the left side. Risk Values: Vesna 5 year model risk: 2.1%. NCI Lifetime model risk: 4.5%. Tissue Density: There are scattered areas of fibroglandular density. Findings: Analyzed By CAD. Global asymmetry posterior upper-outer quadrant right breast is unchanged. Microclip right breast from prior biopsy. Dystrophic calcification posterior superior left breast is unchanged. Palpable marker placed along the lateral aspect of the left breast. Asymmetric density in the outer aspect of the left breast middle to posterior depth remains unchanged. No significant change from prior exams. Overall Assessment: Incomplete: need additional imaging evaluation, BI-RAD 0 Management: Diagnostic Breast Ultrasound of the left breast. [facility], , 06/29/2024 10:31 AM. Electronically signed and approved by: Odilia Goode M.D. Radiologist
--- NOTE | 2024-06-29 11:07 | USB ---
Reason for Exam: Clinical finding. Patient History: Menarche at age 10. First Full-Term at age 17. Postmenopausal. 05/26/2020, Benign Core Biopsy on the right side. 08/26/1998, Benign Excisional Biopsy on the left side. Risk Values: Vesna 5 year model risk: 2.1%. NCI Lifetime model risk: 4.5%. Technique: Method: Targeted. Prior Study Comparison: 12/16/2020 Right Diagnostic Mammogram, [facility]. 05/06/2021 Bilateral Screening Mammogram, [facility]. 05/10/2023 Bilateral MG 3D screening mammo w/cad, [facility]. Findings: The area of palpable concern of the left breast, the axilla of the left breast and the retroareolar of the left breast were scanned. Targeted scanning of the patient's 3:00 palpable site. Additional scanning of the subareolar region and axilla. There is no solid or cystic lesion or axillary adenopathy. Overall Assessment: Benign, BI-RAD 2 Management: Screening Mammogram of both breasts in 1 year. Further clinical management of any suspicious palpable area. If any enlarging lump is detected, the patient can be rescanned. A clinical breast exam by your physician is recommended on an annual basis and results should be correlated with mammographic findings. This exam should not preclude additional follow-up of suspicious palpable abnormalities. Results were given to the patient verbally at the time of exam. [facility], , 06/29/2024 11:04 AM. Electronically signed and approved by: Odilia oGode M.D. Radiologist
== END | disposition home or self-care (01) ==
LOC: RADMAMWWP 10:07
PROVIDERS: ATTEND Family Medicine
DX: R92.323 Mammographic fibroglandular density, bilateral breasts (principal); N63.20 Unspecified lump in the left breast, unspecified quadrant; Z78.0 Asymptomatic menopausal state
CPT/HCPCS: 77062; 77066